=== PATIENT | female | born 1990 | race Caucasian/White ===

== ENCOUNTER 2017-02-11 20:52 | Inpatient (IN) | payer OTHER ==
[~2017-02-11] VITALS: Ht 153.7 cm; Wt 70.3 kg
[~2017-02-11 20:52] MED LIST: Ibuprofen PO
[2017-02-11] MEDS ORDERED: Lactated Ringer's 1,000 ML IV PRN (22:39)
[2017-02-11] MEDS ORDERED: Carboprost 250 mCg/mL Inj IM PRN (22:40)
[2017-02-11] MEDS ORDERED: Methylergonovine 0.2 mg/mL Inj IM PRN (22:40)
[2017-02-11] MEDS ORDERED: Oxytocin 30 Units/500 mL LR 30 UNITS in IV Premix 1 EACH IV PRN (22:40)
[2017-02-11] MEDS ORDERED: Sodium Chloride LOK Flush 10 mL Syringe IVFLUSH PRN (22:40)
[2017-02-11] MEDS ORDERED: Oxytocin 10 Unit/mL Inj IM PRN (22:40)
[2017-02-11] MEDS ORDERED: Ondansetron 2 mg/mL 2 mL Inj IVPUSH PRN (22:40)
[2017-02-11] MEDS ORDERED: Hemorrhage Kit, Post Partum XX ONE (22:40)
[2017-02-11] MEDS ORDERED: MULT1CAP33 PO (23:04)
[2017-02-11 23:41] LABS: Mean Corpuscular Hemoglobin 28.7 pg (27.0-35.0); Mean Corpuscular Volume 84.9 fL (81-100)
[2017-02-11] MEDS: Lactated Ringer's 1,000 ML IV SCH (23:52)
[2017-02-12] MEDS ORDERED: Lactated Ringer's 1,000 ML IV SCH ×2 (02:19→08:01)
[2017-02-12] MEDS ORDERED: Lactated Ringer's 500 ML IV ONE (02:19)
[2017-02-12] MEDS ORDERED: EPHEDrine Sulfate 50 mg/mL Inj IVPUSH PRN (02:20)
[2017-02-12] MEDS ORDERED: Ondansetron 2 mg/mL 2 mL Inj IVPUSH PRN (02:20)
[2017-02-12] MEDS ORDERED: fentaNYL 2 mCg/mL-Bupiv 0.125% 100 ML EPIDURAL SCH (02:20)
[2017-02-12] MEDS ORDERED: Atropine 1 mg/10 mL (Code) Syringe IVPUSH PRN (02:20)
--- NOTE | 2017-02-12 02:23 | PCM.HPANE ---
Patient Data Surgeon Admitting Provider:Sherman Garcia MD Attending Provider:Sherman Garcia MD Primary Care Physician:Renee Crespo ARNP Other Provider: Reason for Visit Term Labor Check TERM LABOR CHECK Ht/WT & BMI Body Mass Index Allergies Coded Allergies: No Known Allergies (Unverified , 02/06/14) Past Anesthesia History Anesthesia History: Denies:: Abnormal Airway, Anesthesia Reactions, Difficult Intubation, Fam Anesthesia Reaction, Fam Malignant Hypertherm, Malignant Hyperthermia Diabetes History Hx Diabetes?: No MRSA MRSA: No Medications Hypertension Medication: No Home Meds Incl Beta Sohail: No Active Scripts [Ibuprofen] (Motrin)600 MG TABLET No Conflict [id number] Mg PO Q6H PRN For Pain Prov:Johanna Solares CNM 02/08/14 Reported Medications Multivitamin (Multivitamins)1 Each Capsule1 Each PO DAILY 02/11/17 History History of ENT Problems?: No HEENT History: Denies:: Abnormal Airway Cataracts Difficult Intubation Dysphagia Glaucoma Hearing Problem Sinus Problem TMJ Denture Type: None Teeth Condition: Within Normal Limits Hx of Heart Problems?: No Cardiovascular History: Denies:: AICD Abdominal Aortic Aneurism Atrial Fibrillation Cardiac Surgery Chest Pain Congestive Heart Failure Coronary Artery Disease Edema Heart Murmur Hypertension Irregular Heartbeat Pacemaker Peripheral Vascular Rheumatic Fever Thrombophlebitis Valvular Heart Disease Hx of Respiratory Problem?: No Respiratory History: Denies:: Asthma COPD Chest Surgery Cough Dyspnea Emphysema Hemoptysis Oxygen Administration Pneumonia Pulmonary Embolism Tuberculosis Use of C-PAP Machine Use of Inhalers / NEBS Hx Neurologic Problems?: Yes Neurological History: Denies:: Alzheimer's Disease CVA Dementia Dizziness Headaches Multiple Sclerosis Parkinson's Disease Peripheral Neuropathy Seizures TIA Other History/Comments History of [place] Palsy, resolved. Treated with steroids Hx of GI Problems?: Yes Gastrointestinal History: Positive for:: Gastroesphageal Reflux Hx of Problems?: No Female Hx: Positive for:: Currently Denies:: Endometriosis Pelvic Inflammatory Problems with Breasts? Other History/Comment Term , currently being induced Hx Musculoskeletal Problems?: No Hx of Psycho/Social Problems?: No Hx Surgeries?: No Hx Any Other Health Problems?: No Hx Diabetes: No Hx Alcohol Use: NoHx Substance Use: No Smoking Status: Unknown if Ever Smoker Have You Smoked inLast 12 mo: No Stop/Bang Treated for Sleep Apnea?: No Do You Have a CPAP Machine?: No Risk Assessment Category Category 1A: Patient has history of documented sleep apnea, and HAS NOT received any narcotic, sedative or anesthesia administration during this stay. Category 1B: Patient has history of documented sleep apnea, and HAS received any narcotic , sedative or anesthesia administration during this stay Category 2: Patient has SUSPECTED Obstructive Sleep Apnea, and HAS received any narcotic , sedative or anesthesia administration during this stay. Category 3: Patient has SUSPECTED Obstructive Sleep Apnea and HAS NOT received narcotic, sedative or anesthesia administration during this stay. Category 4: Outpatient in Procedural Areas with known sleep apnea or who screen positive for High Risk via the STOP/BANG questionnaire. Exam Exam General Appearance: Alert, Oriented X3, Cooperative, No Acute Distress HEENT/AIRWAY: MP 2 Lungs: Clear to Auscultation, Normal Air Movement Heart: Exam Unremarkable, Regular Rate/Rhythm, No Murmurs/Rubs/Gallops Meds/Labs/Diagnostics Admission Meds Current Medications Lactated Ringer's (Lr) 1,000 ml @ 125 mls/hr Q8H IV Last administered on t 23:52; Start 02/11/17 at 22:40 Labs Test 02/11/17 23:25 White Blood Count 11.0th/mm3 (3.8-10.1) Red Blood Count 3.90mil/mm3 (3.90-5.20) Hemoglobin 11.2g/dL (12.0-15.6) Hematocrit 33.1% (35.0-46.0) Mean Corpuscular Volume 84.9fL (81-100) Mean Corpuscular Hemoglobin 28.7pg (27.0-35.0) Mean Corpuscular Hemoglobin Concent 33.8% (32.0-37.0) Red Cell Distribution Width 12.9% (12.3-15.4) Platelet Count 216bil/L (150-400) Plan Impression Patient chart reviewed, patient interviewed and anesthestic plan with risks, benefits, and alternatives discussed, and informed consent obtained. ASA Physical Status: ASA2 Mod Systemic Disease Anesthetic Plan: Epidural Bene/Risks/Altern/Consents: Yes HP Complete Prior to Induction: Yes Stevo Dailey MD Feb 12, 2017 02:23
--- NOTE | 2017-02-12 02:55 | PCM.ANEP1 ---
Post Anesthesia PACU Phase 1 Assessment Anesthetic Administered: Epidural Level of Alertness: Awake, talking SIGALA's with Equal Strength: No Pain: No Nausea or Vomiting: No CV Function & Hydration Stable: Yes Airway Device: Oxygen Delivery: Room Air Lungs: Clear to Auscultation, Normal Air Movement Dermatome Level: T10 (Umbilicus) PACU Phase 2 Assessment Complications: No Follow up Care: No Patient Instructions Provided: N/A Comments Complete pain relief Stevo Dailey MD Feb 12, 2017 02:55
--- NOTE | 2017-02-12 03:04 | HP ---
[address] [address] HISTORY AND PHYSICAL PATIENT: MERYL VENTURA : 1990 MR#: [id number] ADMIT: 02/11/2017 JOB ID: [id number] DATE OF ADMISSION: 02/11/2017 ADMISSION DIAGNOSIS: Spontaneous rupture of membranes at term. HISTORY OF PRESENT ILLNESS: The patient is 26-year-old, 2, para 1-0-0-1, at 40 weeks and 4 days gestational age by last menstrual period, confirmed by first trimester ultrasound. Had been leaking fluid since last Wednesday, February 08, 2017. ROM plus test was positive at triage. Denied any vaginal bleeding. Reports some infrequent contractions and reports movements. was complicated with the followin. Varicella nonimmune. 2. 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 The patient received five days course of prednisone. No signs of Guthrie's palsy on admission today. PAST OBSTETRICAL HISTORY: The patient had in 2013, 40 weeks with spontaneous vaginal delivery with no complications and the current . PAST GYNECOLOGIC HISTORY: Denied any history of abnormal Pap smears. Denied any history of STDs. PAST MEDICAL HISTORY: Heartburn, was on omeprazole during . PAST SURGICAL HISTORY: Tonsillectomy. ALLERGIES: To PENICILLINS. Her grandfather has history of severe PENICILLIN allergy. The patient had actually never used it. MEDICATIONS: 1. Omeprazole 20 mg daily. 2. vitamins. SOCIAL HISTORY: Ex-smoker, used to smoke cigarettes half a pack per day for 10 years, stopped on May 2016 at the beginning of this . Denies any alcohol consumption. Denies any drugs of abuse. FAMILY HISTORY: Insignificant for twinning or congenital anomalies. LABORATORIES: O positive, antibody negative, rubella immune, varicella nonimmune, RPR nonreactive. Hepatitis B surface antigen negative, HIV nonreactive. GC chlamydia cultures negative. GBS cultures negative. PHYSICAL EXAMINATION: The patient is alert, oriented x3. Vital signs are 97/56 for blood pressure, respirations are 18, pulse is 85, temperature 36.3 degrees centigrade. Heart is regular rate and rhythm. Positive S1, S2. Lungs clear to auscultation bilaterally. Abdomen: Gravid uterus, nontender. Positive bowel sounds. Lower extremities: No calf tenderness appreciated bilaterally. Cervical exam: 2 cm dilated, the cervix 90% effaced, -3 station, soft consistency, mid position. Phillips score of 7. The patient had OB ultrasound on February 01, 2017 that showed vertex presentation, average gestational age 38 weeks and 3 days. Estimated weight 3799 g, 69 percentile, BESS 9.7 cm. heart tracing is showing a baseline of 135 beats per minute, positive accelerations, no decelerations and moderate variability. ASSESSMENT AND PLAN: The patient is 26-year-old, 2, para 1-0-0-1, at 40 weeks 4 days gestational age with prolonged rupture of membranes. 1. Start induction of labor for favorable cervix with Pitocin. 2. Discussed intrapartum analgesia. The patient opted for epidural, anesthesia notified. 3. Category 1 heart tracing. Continue external monitoring. 4. GBS cultures negative. All the above discussed in detail with the patient who agreed to the plan.
[2017-02-12] MEDS: Lactated Ringer's 1,000 ML IV SCH (06:40)
[2017-02-12] MEDS ORDERED: Oxytocin 30 Units/500 mL LR 30 UNITS in IV Premix 1 EACH IV PRN (08:05)
[2017-02-12] MEDS ORDERED: Witch Hazel-Glycerin Pads TOPICAL PRN (08:05)
[2017-02-12] MEDS ORDERED: Carboprost 250 mCg/mL Inj IM PRN (08:05)
[2017-02-12] MEDS ORDERED: Hemorrhage Kit, Post Partum XX ONE (08:05)
[2017-02-12] MEDS ORDERED: Benzocaine (Dermoplast) 20% 60 Gm Spray TOPICAL PRN (08:05)
[2017-02-12] MEDS ORDERED: LANOlin HPA 7 Gm Ointment TOPICAL PRN (08:05)
[2017-02-12] MEDS ORDERED: Oxytocin 10 Unit/mL Inj IM PRN (08:05)
[2017-02-12] MEDS ORDERED: Methylergonovine 0.2 mg/mL Inj IM PRN (08:05)
[2017-02-12] MEDS ORDERED: Sodium Chloride LOK Flush 10 mL Syringe IVFLUSH SCH (08:30)
--- NOTE | 2017-02-12 08:34 | OP ---
[address] [address] OPERATIVE REPORT PATIENT: MERYL VENTURA : 1990 MR#: [id number] ADMIT: 02/11/2017 JOB ID: [id number] DATE OF SURGERY: 02/12/2017 PREOPERATIVE DIAGNOSIS(ES): A 26-year-old, 2, para 1-0-0-1, at 40 weeks and 5 days gestational age by last menstrual period, confirmed by first-trimester ultrasound. Admitted with prolonged rupture of membranes for four days plus per patient's history. Induction of labor started with Pitocin. Patient progressed to fully dilated, +3 station. POSTOPERATIVE DIAGNOSIS(ES): A 26-year-old, 2, para 1-0-0-1, at 40 weeks and 5 days gestational age by last menstrual period, confirmed by first-trimester ultrasound. Admitted with prolonged rupture of membranes for four days plus per patient's history. Induction of labor started with Pitocin. Patient progressed to fully dilated, +3 station. PROCEDURE: Spontaneous vaginal delivery. SURGEON: Sherman Garcia MD. ANESTHESIA: Epidural. ESTIMATED BLOOD LOSS: 200 cc. COMPLICATIONS: Two-minute shoulder dystocia. FINDINGS: Single viable female with Apgars 7/9, weight of 4042 g. DESCRIPTION OF PROCEDURE: The patient started to push efficiently. 's head delivered in right occiput anterior position. Tight nuchal cord noted around the neck. It had to be clamped and cut to release. Shoulder dystocia was noted. The left shoulder was the upper shoulder. Maneuvers were the done in the following sequence. 1. Luis. 2. Suprapubic pressure. 3. Suhail maneuver. Failed. 4. Delivery of the posterior arm which was successful and released the dystocia. Maternal pushing efforts were coached during the entire time, and no pressure or pulling were applied to the baby's head at any time. After delivery of the posterior arm, which was the right arm, the anterior shoulder was released and the body was delivered. Baby was handed off to awaiting rounder and backer. Placenta followed spontaneously. Upon inspection, it was noted to be intact with three-vessel cord marginally inserted. Firm uterine fundus at the end of the delivery. Inspection of the perineum revealed no perineal lacerations. Mom and baby recovering in stable condition in labor and delivery room. Sponge and instrument counts were correct x2. Dr. Garcia was present and scrubbed for the entire procedure.
[2017-02-12] MEDS: Ascorbic Acid 500 mg Tablet PO SCH (20:34)
[2017-02-13 07:22] LABS: Mean Corpuscular Hemoglobin 28.4 pg (27.0-35.0); Mean Corpuscular Volume 86.6 fL (81-100)
--- NOTE | 2017-02-13 09:56 | PCM.DIOB ---
Obstetrical Disch Instruction Date of Service: Feb 13, 2017 Dates of Hospitalization Date of Hospital Admission Feb 11, 2017 at 22:09 Providers Admitting Physician: Sherman Garcia MD Primary Care Physician: Renee Crespo ARNP Attending Physician: Sherman Garcia MD Discharge Diagnosis Discharge Diagnosis PPD#1 S/P , Anemia Problems: Diet Discharge Diet: No restrictions Activity Discharge Activity-General: Pelvic Rest for 6 weeks, No lifting >10 pounds for 4-6 weeks Dressing and Incisional Care Hygiene: May shower Follow Up Plan Follow-up Provider (F9): William Rojas MD Follow-up appointment: Weeks (2) Call your provider for: Fever or Chills, Shortness of breath, Heavy vaginal bleeding, Other (excessive pain not controlled with pain medications.) Sherman Garcia MD Feb 13, 2017 09:55
[2017-02-13] MEDS ORDERED: IBUP-1827 PO (10:02)
[2017-02-13] MEDS ORDERED: Ascorbic Acid PO (10:02)
[2017-02-13] MEDS ORDERED: DOCU-41 PO (10:02)
[2017-02-13] MEDS ORDERED: FERR-74 PO (10:02)
[2017-02-13] MEDS: Ascorbic Acid 500 mg Tablet PO SCH (11:44)
[2017-02-13 12:24] VITALS: BP 117/62; PULSE 96; RESP 16
== END 2017-02-13 16:14 | disposition home or self-care (01) | DRG 560 ==
LOC: FBCO 20:52 → FBC 22:09
PROVIDERS: ADMIT Obstetrics & Gynecology; ATTEND Obstetrics & Gynecology
PROC: 3E033VJ Introduction of Other Hormone into Peripheral Vein, Percutaneous Approach (ICD-10-PCS; 2017-02-11)
PROC: 10E0XZZ Delivery of Products of Conception, External Approach (ICD-10-PCS; principal; 2017-02-12)
DX: O42.12 Full-term premature rupture of membranes, onset of labor more than 24 hours following rupture (principal); O66.0 Obstructed labor due to shoulder dystocia; Z3A.40 40 weeks gestation of pregnancy; Z37.0 Single live birth; O69.1XX0 Labor and delivery complicated by cord around neck, with compression, not applicable or unspecified